=== PATIENT | male | born 1935 | race Caucasian/White ===

== ENCOUNTER 2019-12-01 09:01 | Inpatient (IN) ==
[2019-12-01] MEDS ORDERED: NEO SYNEPHRINE NAS ONE (09:38)
--- NOTE | 2019-12-01 09:47 | PROVIDER DOCUMENTATION ---
HPI-General Adult - General Chief Complaint: Near Syncope Stated Complaint: SYNCOPE Time Seen by Provider: 12/01/19 09:18 Source: patient, family, EMS, old records Allergies/Adverse Reactions: Patient Allergies Allergy/AdvReac Type Severity Reaction Status Date / Time No Known Allergies Allergy Verified 12/01/19 09:38 Home Medications: Home Medication List Medication Instructions Recorded Confirmed Last Taken Type Albuterol Sulfate Inhaler 1 dose INH PRN PRN 12/01/19 12/01/19 Unknown History [Ventolin Hfa] Aspirin EC 1 tab PO DAILY 12/01/19 12/01/19 11/30/19 History Citalopram [Celexa] 1.5 tab PO DAILY 12/01/19 12/01/19 11/30/19 History Simvastatin 1 tab PO DAILY 12/01/19 12/01/19 11/30/19 History - History of Present Illness -Gen Adult Nature of Presenting Problems: pt brought from home by EMS, hx of near syncope in bathroom (not on toilet at time). Pt says he had similar episode a few years ago, doesn't know/recall dx. 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 He had slight nosebleed yest and again this a.m. immed prior to event. he reports a sense of (vertigo) w/ dry heaving this a.m. coincident to event. he denies productive emesis, recent bloody/black stool. he denies assoc CP/SOB/lateralizing neuro symptoms. his reports he has hx of a "blood disorder" chrx by (? petechiae). he has no prior hx of cerebellar disease, CVA, or recurrent epistaxis. Location of Pain/Injury: reports: none Review of Systems - Adult - REVIEW OF SYSTEMS - ADULT Constitutional: reports: no symptoms reported Eyes: reports: other (vertigo) Ears, Nose, Mouth & Throat: reports: epistaxis Cardiovascular: reports: no symptoms reported Respiratory: reports: no symptoms reported Gastrointestinal: reports: no symptoms reported Genitourinary: reports: no symptoms reported Musculoskeletal: reports: no symptoms reported Integumentary: reports: no symptoms reported Neurological: reports: see HPI, dizziness/vertigo, syncope Psychiatric: reports: no symptoms reported Endocrine: reports: no symptoms reported Hematologic/Lymphatic: reports: no symptoms reported Allergic/Immunologic: reports: no symptoms reported All Other Systems: Reviewed and Negative Past History - Adult - PAST MEDICAL HISTORY-ADULT Review of Records: reports: Old Records Reviewed Major Childhood Illnesses: reports: denies history Cardiovascular: reports: cardiac disease, CAD, hyperlipidemia Respiratory: reports: bronchitis, COPD Gastrointestinal: reports: denies history Genitourinary: reports: cancer (prostate, no tx) Musculoskeletal: reports: denies history Neurological: reports: denies history Psychiatric: reports: denies history Endocrine/Immune: reports: denies history Physical Exam-General - PHYSICAL EXAM-ADULT Initial Vital Signs Reviewed: Yes - CONSTITUTIONAL General Appearance: alert (very [place], wearing hearing aids), mild distress, lethargic - EYES Eyes: PERRL/EOMI. negative: EOM palsy, sclera injected, scleral icterus, subconjunctival hemorrhage - HEAD, EARS, NOSE, MOUTH & THROAT HENMT: normocephalic/atraumatic, other (dried BRB in R nasal antrum) - NECK Neck: supple - RESPIRATORY Respiratory: chest non-tender, rhonchi (only w/ forced expiration) - CARDIOVASCULAR Cardiovascular: normal peripheral pulses, regular rate, rhythm, bradycardia - GASTROINTESTINAL (ABDOMEN) Abdominal Exam: normal bowel sounds, non tender, soft - LYMPHATIC Lymphatic: no adenopathy - MUSCULOSKELETAL Back Exam: normal inspection, no CVA tenderness Extremity: normal range of motion. negative: abnormal NV exam, calf tenderness, pulse deficit, pedal edema Peripheral Pulses: radial (R): 2+, radial (L): 2+ - SKIN Integumentary: normal turgor, diaphoresis, pallor. 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 negative: abnormal cerebellar tests, focal weakness - PSYCHIATRIC Psych/Mental Status: normal mood/affect, normal thought content Progress - PLAN OF CARE/RESULTS Progress/Plan/Lab Results: Vital Signs - 8 hr 12/01/19 09:05 Temperature 97.7 F Pulse Rate 49 L Respiratory Rate 12 Blood Pressure 126/60 O2 Sat by Pulse Oximetry 94 L Orders Category Date Time Status Cardiac Monitoring DIRECTED Care 12/01/19 09:39 Ordered NEWS Score 2-4:Order NEWS Lactate Series NOW Care 12/01/19 09:18 Active Oxygen Therapy- ED Nursing DIRECTED Care 12/01/19 09:39 Ordered Saline Loc NOW Care 12/01/19 09:39 Ordered CHEST-1 VIEW [RAD] Stat Exams 12/01/19 09:[address] HEAD W/O CONTRAST [CT] Stat Exams 12/01/19 09:40 Ordered CBC WITH ELECTRONIC DIFF [HEME] Stat Lab 12/01/19 09:39 Uncollected CK PROFILE [SP CHEM] Stat Lab 12/01/19 09:39 Uncollected COMPREHENSIVE METABOLIC PANEL [CHEM] Stat Lab 12/01/19 09:39 Uncollected LACTATE, PLASMA [CHEM] Q3H Lab 12/01/19 09:30 Uncollected LACTATE, PLASMA [CHEM] Q3H Lab 12/01/19 12:30 Uncollected LACTATE, PLASMA [CHEM] Q3H Lab 12/01/19 15:30 Uncollected PRO B-NATRIURETIC PEPTIDE Stat Lab 12/01/19 09:39 Uncollected PROTIME WITH INR [COAG] Stat Lab 12/01/19 09:39 Uncollected PTT [COAG] Stat Lab 12/01/19 09:39 Uncollected TROPONIN T HIGH SENSITIVITY Stat Lab 12/01/19 09:39 Uncollected Phenylephrine 1% Nose Drops [Hong-Synephrine 1% Nose Med 12/01/19 09:38 Once Drops] See Dose Instructions MARY NOW ONE CP/SOB/Palp >45 yrs of Age Stat Oth 12/01/19 09:39 Ordered Result Diagrams: 12/01/19 10:16 12/01/19 10:16 - REASSESSMENT Reassessment #1 Time Reassessed: 11:01 Status: unchanged (prelim labs and imaging NAD) Reassessment #2 Time Reassessed: 12:10 Status: unchanged (pt cont'd to cc: dizziness, malaise: I feel admission for further evaluation is warranted, will consult Hosp.) - EKG 1 Time of EKG reading by physician:: 09:10 EKG Interpretation (*Must complete 3 of following elements*): Normal Rate: 51 Rhythm: sinus gutierrez [place]: normal QRS: RBB (incomplete) [place] Interval: normal ST Wave: normal - CONSULTS/PCP/HOSPITALIST Notification #1 *Consult/PCP/Hospitalist*: Christiana Alvarez Time Discussed: 12:40 Consult Disposition: Will see in ED Departure - Departure Date of Disposition Decision: 12/01/19 Time of Disposition Decision: 12:45 DIAGNOSIS: Syncope and collapse, Vertigo Disposition: ADMITTED INPATIENT 09 Certified Medical Emergency: Emergent Condition: Serious - Critical Care Note This patient required my direct & personal management of CC.: Yes Total Time (mins): 45 Critical Care Statement: This patient required my direct personal management to treat or rule out processes, the absence of which, could potentiallly result in sudden, clinically significant life or limb threatening deterioration. Attestation - Physician/ OMAR Attestation The physician spent face to face time with patient:: Yes Advanced Practice Provider documentation review:: Supervising physician onsite and consulted in the evaluation and care of this patient. The physician did have a face to face encounter with the patient.
--- NOTE | 2019-12-01 10:15 | Diag Imaging Result Doc PS360 ---
EXAM: CT HEAD W/O CONTRAST - 12/01/2019 HISTORY: vertigo, syncope TECHNIQUE: CT head without contrast COMPARISON: None. FINDINGS: There are generalized mild atrophic changes and mild chronic appearing microvascular ischemic changes. There is no indication of recent infarct, although acute infarcts may not be immediately visible. There is no evidence of intracranial hemorrhage, mass effect, midline shift, or hydrocephalus. 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 There is no evidence of skull fracture. Visualized portions of paranasal sinuses and mastoid air cells appear clear except for mild mucosal thickening at the right compartment sphenoid sinus. IMPRESSION: No visible acute intracranial abnormality. No hemorrhage or mass effect. There is mild right sphenoid sinus mucosal thickening noted. This exam was performed using automated exposure control, adjustment of mA or kV according to patient size, and/or use of iterative reconstruction technique. Electronically signed by Bacilio Martínez 12/01/2019 10:13 AM
--- NOTE | 2019-12-01 10:17 | Diag Imaging Result Doc PS360 ---
EXAM: CHEST-1 VIEW - 12/01/2019 HISTORY: near syncope TECHNIQUE: One view chest COMPARISON: 08/20/2019 FINDINGS: Heart size is normal. There are sternal wires from previous surgery again seen. There are mild COPD changes. The lungs appear clear of acute changes. There is no pleural effusion or pneumothorax identified. IMPRESSION: Mild COPD changes. No acute changes. Electronically signed by Bacilio Martínez 12/01/2019 10:14 AM
[2019-12-01 10:27] LABS: BASO# 0.04 X1000 (0.0-0.2); BASO% 0.6 % (0.0-0.8); EOS# 0.13 X1000 (0.0-0.7); HEMATOCRIT 44.6 % (42.0-52.0); LYMPH% 26.2 % (20.5-51.1); MCHC 33.6 g/dL (33-37); MCV 92.1 FL (81-99); MONO# 0.52 X1000 (0.11-0.59); MPV 12.3 FL (7.4-10.4); NEUT# 4.09 X1000 (1.4-6.5); NEUT% 63.2 % (42.2-75.2); PLT 130 X1000 (130-400); RBC 4.84 XMIL (4.7-6.1); RDW 13.4 % (11.5-14.5); WBC 6.48 X1000 (4.8-10.8)
[2019-12-01 10:38] LABS: INR 1.06; PROTIME 13.9 Seconds (11.0-16.0)
[2019-12-01 10:39] LABS: PTT 27.5 Seconds (22.3-41.8)
[2019-12-01 10:57] LABS: AGAP 13; ALB/GLOB RATIO 1.7; ALBUMIN 3.9 g/dL (3.5-5.0); ALKALINE PHOSPHATASE 51 U/L (32-122); BUN 17 mg/dL (8-22); CALCIUM 9.3 mg/dL (8.8-10.2); CHLORIDE 108 mmol/L (98-107); CK PROFILE 46 U/L (24-204); COSMO 290; CREATININE 1.1 mg/dL (0.7-1.2); ESTIMATED GFR > 60; GLUCOSE 134 mg/dL (70-104); GOT 17 U/L (10-34); GPT 16 U/L (10-44); POTASSIUM 4.9 mmol/L (3.5-5.1); SODIUM 144 mmol/L (136-145); TCO2 23 mmol/L (25-35); TOTAL BILIRUBIN 1.18 mg/dL (0.20-1.00); TOTAL PROTEIN 6.2 g/dL (6.3-8.3)
[2019-12-01] MEDS ORDERED: ZOFRAN IV PRN (13:09)
[2019-12-01] MEDS ORDERED: VENTOLIN HFA INH PRN (13:12)
--- NOTE | 2019-12-01 15:36 | HISTORY AND PHYSICAL ---
CHIEF COMPLAINT: Dizziness, syncope. HISTORY OF PRESENT ILLNESS: This is a very pleasant 84-year-old gentleman with a history of COPD, coronary artery bypass graft, status post 20 years and prostate cancer, watching and waiting. He presents to the emergency room via EMS after falling. The patient states that yesterday he had a nosebleed and that it resolved spontaneously after a few minutes. Today, he was sitting in a chair. He felt and his nose was running. He said that he noticed it was bleeding. It bled continuous for a short amount of time. He is unable to tell me a certain time. He states that he got up to walk to the bathroom. While walking into the bathroom he became very dizzy. He got hot, he sweated, he had nausea. He did not vomit. He does not recall having any chest pain, any weakness our any lateralizing neurological symptoms. He states, "I was just so dizzy and week that my legs would not hold my body up." He denied any seizure activities, any loss of consciousness, any incontinence of stool or urine. PAST MEDICAL HISTORY: 1. Chronic obstructive pulmonary disease. 2. CAD status post coronary artery bypass graft greater than 20 years ago. 3. Hyperlipidemia. 4. Prostate cancer, watching and waiting. 5. Some kind of blood disorder that he follows with Dr. Farr. SOCIAL HISTORY: He lives with his . He denies any alcohol, tobacco, or illicit drug use. ALLERGIES: No known drug allergies. HOME MEDICATIONS: Ventolin inhaler, enteric-coated aspirin, Celexa, and simvastatin. REVIEW OF SYSTEMS: Discussed with patient with pertinent positives stated in the HPI. He denied any chest pain or palpitations, any vomiting, diarrhea, constipation, black or bloody vomitus or stools, any hematuria dysuria, frequency or urgency. PHYSICAL EXAMINATION: GENERAL: This is an 84-year-old gentleman who was sitting up on the stretcher in the emergency room in no distress. VITAL SIGNS: Blood pressure is 133/69 with a heart rate of 57, respirations are 16, temperature is 97.7 degrees oral with O2 saturations 93% to 95% on 2 L nasal cannula. HEENT: Head is normocephalic, atraumatic. Mucous membranes are moist. NECK: Supple with trachea midline. No JVD. CARDIOVASCULAR: Regular rate and rhythm. S1 and S2 are appreciated. No murmur. He has no lower extremity edema. Calves are nontender. PULMONARY: Breath sounds are clear with no increased work of breathing noted. Chest rises and falls symmetric with respiration. Chest wall is nontender to palpation. GASTROINTESTINAL: Abdomen is soft, nontender, nondistended with bowel sounds in all 4 quadrants. GENITOURINARY: No CVA or suprapubic tenderness. NEUROLOGIC: He is alert and oriented x3 with cranial nerves 2-12 grossly intact. SKIN: Pale, warm and dry. LABS: WBC is 6.4, hemoglobin 15, hematocrit 44.6, and platelets of 130,000. Sodium 144, potassium 4.9, BUN 17, creatinine 1.1 with a glucose of 134. IMAGING: CT of the head reveals no visible acute intracranial abnormality. No hemorrhage or mass effect. There is right sphenoid sinus mucosal thickening. Chest x-ray reveals mild COPD changes, no acute changes. ASSESSMENT: This is an 84-year-old gentleman with: 1. Syncope. 2. Dizziness. 3. Recent nosebleed. 4. Coronary artery bypass graft and coronary artery disease. 5. Chronic obstructive pulmonary disease with no exacerbation. 6. Prostate cancer, watching and waiting. PLAN: 1. Hong-Synephrine nose spray, 1 to 2 sprays in the nostril p.r.n. bleeding. 2. Ventolin inhaler 1 puff q.4 hours as needed. 3. Trend troponins. 4. Check the take EKG in the morning. 5. Echocardiogram. 6. Bilateral carotid Doppler. 7. Identify home medications and continue as appropriate. 8. Telemetry. 9. EKG and further treatments pending hospital course. 10. Check CBC, CMP, and magnesium in the morning. Dictated by IVONNE Mead for Yazmin Blackwell MD cc: IVONNE Mead MD
--- NOTE | 2019-12-01 15:54 | EKG Report ---
Test Performed on : 12/01/2019 09:10:28 AM Test Reason : dizzy, syncope Blood Pressure : / mmHG Vent. Rate : 051 BPM Atrial Rate : 051 BPM P-R Int : 152 ms QRS Dur : 100 ms QT Int : 452 ms P-R-T Axes : 067 022 055 degrees QTc Int : 416 ms Sinus bradycardia. Incomplete right bundle branch block Borderline ECG No previous ECGs available Unconfirmed Result
[2019-12-01] MEDS ORDERED: TYLENOL PO PRN (16:13)
[2019-12-01 17:38] LABS: ALLEN TEST YES; BE -1.2 mmoll (-3.0-3.0); BLOOD TYPE ARTERIAL; HCO3-(ACT) 23.9 mmoll (20.0-26.0); METHB 1.2 % (0.0-1.5); O2(CT) 20.9 mL/dL (15.0-23.0); O2HB 95.2 % (95.0-99.0); PCO2(98.6) 35 mmHg (35-45); PO2(98.6) 80 mmHg (60-100); SAMPLE BLOOD; SAO2 97.9 % (95.0-100.0); THB 15.6 g/dL (11.5-17.4); pH(98.6) 7.42 (7.35-7.45)
[2019-12-01 17:39] LABS: MODALITY CANNULA
[2019-12-01] MEDS: DUONEB (A & A) INH SCH ×2 (19:41→23:30)
[2019-12-02] MEDS: DUONEB (A & A) INH SCH ×3 (03:57→11:08)
[2019-12-02 07:40] LABS: BASO# 0.03 X1000 (0.0-0.2); BASO% 0.3 % (0.0-0.8); EOS# 0.12 X1000 (0.0-0.7); EOS% 1.3 % (0.0-10.0); HEMATOCRIT 43.5 % (42.0-52.0); HEMOGLOBIN 14.8 g/dL (14.0-18.0); IMM GRAN# 0.02 X1000 (0.0-0.04); IMM GRAN% 0.2 % (0.0-0.5); LYMPH# 2.07 X1000 (1.2-3.4); LYMPH% 23.1 % (20.5-51.1); MCH 31.3 PG (27-31); MONO# 0.73 X1000 (0.11-0.59); MONO% 8.1 % (1.7-9.3); MPV 12.6 FL (7.4-10.4); PLT 118 X1000 (130-400); RBC 4.73 XMIL (4.7-6.1); RDW 13.4 % (11.5-14.5); WBC 8.97 X1000 (4.8-10.8)
--- NOTE | 2019-12-02 07:52 | EKG Report ---
Test Performed on : 12/02/2019 07:39:08 AM Test Reason : bradycardia Blood Pressure : / mmHG Vent. Rate : 061 BPM Atrial Rate : 061 BPM P-R Int : 162 ms QRS Dur : 102 ms QT Int : 422 ms P-R-T Axes : 069 022 050 degrees QTc Int : 424 ms Normal sinus rhythm. Incomplete right bundle branch block Borderline ECG When compared with ECG of 01-DEC-2019 09:10, (Unconfirmed) No significant change was found Confirmed by Kristel CASILLAS, Fletcher Givens ([id number]) on 12/02/2019 9:26:31 AM
[2019-12-02] MEDS ORDERED: ZOCOR PO SCH (09:00)
[2019-12-02] MEDS ORDERED: CELEXA PO SCH (09:00)
[2019-12-02] MEDS ORDERED: ASPIRIN EC PO SCH (09:00)
[2019-12-02 12:34] LABS: AGAP 13; ALB/GLOB RATIO 2.4; ALKALINE PHOSPHATASE 51 U/L (32-122); BUN 15 mg/dL (8-22); CALCIUM 8.9 mg/dL (8.8-10.2); CHLORIDE 103 mmol/L (98-107); COSMO 273; ESTIMATED GFR > 60; GLUCOSE 107 mg/dL (70-104); GOT 15 U/L (10-34); GPT 14 U/L (10-44); MAGNESIUM 1.9 mg/dL (1.5-2.7); POTASSIUM 4.2 mmol/L (3.5-5.1); SODIUM 136 mmol/L (136-145); TCO2 20 mmol/L (25-35); TOTAL BILIRUBIN 1.24 mg/dL (0.20-1.00); TOTAL PROTEIN 5.7 g/dL (6.3-8.3)
--- NOTE | 2019-12-02 15:14 | CARDIOLOGY CONSULTATION ---
DATE: 12/02/2019 CHIEF COMPLAINT ON PRESENTATION: Dizziness. Nosebleed. HISTORY OF PRESENT ILLNESS: Mr. De Los Santos is an 84-year-old white male with a history of coronary bypass roughly 20 years ago, COPD, prostate cancer. He presents after an episode of nose bleeding that occurred yesterday while he was getting ready for a bath. He was not performing any physical exertion. He reports no trauma. During the course of the nosebleed he felt very dizzy. He did not vomit, he did not pass out. He made it over to the bed and lay down in the bed and it resolved with a few minutes of rest. He is adamant that he did not pass out. He had no fevers. No recent cough. No complaints of chest pain. PAST MEDICAL HISTORY: 1. COPD. 2. Coronary disease with history of bypass grafting. I do not have his records as of yet. 3. Hyperlipidemia. 4. Prostate cancer currently under monitoring. 5. Hyperlipidemia. SOCIAL HISTORY: He is . No current tobacco or alcohol. FAMILY HISTORY: Hypertension. REVIEW OF SYSTEMS: A 10 system review of systems is negative except for those mentioned HPI. PHYSICAL EXAMINATION: Afebrile. Heart rate 63. Blood pressure 139/70. He was not orthostatic.General: No acute distress. HEENT: Oropharynx is moist. Poor dentition. [place] conjunctivae. White sclerae. Neck: Shows no obvious thyromegaly or thyroid tenderness. Cardiovascular: He sounds to be in a regular rate and rhythm. He has no obvious murmurs. There is no S3 present. He has no lower extremity edema. Chest: Clear bilaterally. He has no increased work of breathing. Abdomen: Soft, nontender, nondistended. He has no obvious organomegaly. Skin: Warm and dry throughout without any rashes. Neurological: He is moving all extremities well. He has no lateralizing deficits. PERTINENT DATA: His EKG at 9:10 shows sinus rhythm, 51 beats per minute. Normal intervals, normal axis. No signs of infarct. His EKG tracing on the at 7:39 sinus rhythm, normal intervals, normal axis. No infarct. No ischemic changes although his tracings were reviewed by me. His chest x-ray shows mild COPD changes. His lab data shows a white count 8.9, hematocrit 43, platelet count is 118,000. His sodium is 136, potassium 4.2, BUN 15, creatinine is 1. His cardiac enzymes are negative. His proBNP was 76. ASSESSMENT: Mr. De Los Santos is an 84-year-old gentleman who presented with nosebleed and dizziness with no overt syncope. PLAN: I will review his echocardiogram. If this is unremarkable, then he can likely be discharged home with an outpatient KOURTNEY monitor. His EKGs have been unremarkable. His telemetry tracings have demonstrated sinus rhythm with no significant arrhythmias. His lab data has been unremarkable with the exception of a non anion gap acidosis. His troponins have been unremarkable. We will review the echocardiogram. Further recommendations to follow. cc: Major Jackson MD
[2019-12-02 16:10] VITALS: BP 139/74
--- NOTE | 2019-12-02 20:23 | DISCHARGE SUMMARY ---
ADMISSION DATE: 12/01/2019 DISCHARGE DATE: 12/02/2019 FINAL DISCHARGE DIAGNOSES: 1. Dizziness. 2. Epistaxis. 3. Hypertension. 4. History of prostate cancer. 5. Coronary artery disease. 6. Chronic obstructive pulmonary disease. CONSULTATIONS: Cardiology consultation with Dr. Jackson. IMAGING: Head CT performed on 12/01/2019 which reveals mild right sphenoid sinus thickening. HOSPITAL COURSE: Mr. De Los Santos is an 84-year-old male with a history of COPD and coronary artery disease who presented to the ER with a chief complaint of dizziness as well as a nosebleed prior to the dizziness. The patient was brought to the ER. Upon arrival the patient was noted to have normal blood pressure. His laboratory studies were noted to be within normal limits as well. The patient was admitted to the hospitalist service for observation. The patient was placed on telemetry. No arrhythmia was noted over the 24 hour period. The patient was seen by the pediatric social worker and an echocardiogram was done. It was recommended by the pediatric social worker that the patient be given a event monitor which he will arrange. The patient had no further episodes of dizziness or epistaxis while hospitalized. The patient was cleared for discharge home on 12/02/2019. DISCHARGE MEDICATIONS: 1. Aspirin 81 mg p.o. daily. 2. Celexa 30 mg oral daily. 3. Simvastatin 20 mg p.o. at bedtime. DISCHARGE DIET: Low-sodium, low-cholesterol diet. ACTIVITY: As tolerated. FOLLOWUP INSTRUCTIONS: The patient will need to follow up with Dr. Major Jackson as scheduled by his clinic. He will then arrange for the patient to be given event monitor. cc: Yazmin Blackwell MD
--- NOTE | 2019-12-03 05:23 | ECHO REPORT ---
ORDER DATE: 12/02/2019 MEASUREMENTS: 1. Left ventricular internal diameter in diastole 4.4. 2. Aortic root 3.3. 3. Left atrium 4.9. SUMMARY: 1. Technically difficult study due to limited acoustic window quality. 2. The aortic valve is trileaflet and opens normally on 2-dimensional images. The peak gradient across aortic valve is approximately 10 mmHg. Mitral and tricuspid valves are without evidence of structural abnormality while pulmonic valve is not well demonstrated. There is trace tricuspid regurgitation. The aortic root is normal in size. 3. Normal left ventricular dimensions demonstrated. The left ventricular ejection fraction is estimated to be approximately 70%. No regional wall motion abnormality is evident. Doppler mitral inflow demonstrates pseudo normalized pattern suggesting grade 2 left ventricular diastolic dysfunction. Left atrium is moderately enlarged. The right atrium and right ventricle are normal size with grossly preserved right ventricular systolic function. 4. No pericardial effusion. 5. Inferior vena cava not well demonstrated. CONCLUSIONS: 1. Technically difficult study. 2. No significant valvular abnormality evident. 3. Estimated left ventricular ejection fraction approximately 70% without regional wall motion abnormality evident. 4. Grade 2 left ventricular diastolic dysfunction suggested. 5. Moderate left atrial enlargement. cc: MD Savita Greer CRNP
--- NOTE | 2019-12-03 07:04 | Carotid Study ---
DATE: 12/02/2019 REQUESTING PROVIDER: IVONNE Mead.. SHADOWGRAPH SCALE OPERATOR: Khoi. INDICATIONS: Syncope. EQUIPMENT: [employer] Vivid E9 ultrasound system with a 9 L-D transducer. FINDINGS: Complete diagram of ultrasound can be seen and scanned in patient's medical record. Peak systolic velocity noted on the right side in the mid internal carotid artery is noted to be 97. The peak systolic velocity noted in the left side is noted in the proximal internal carotid artery, noted to be 106. The calculated internal common ratio on the right is 0.72 and left 0.87. Calculated stenosis on the right 0 to 39 percent, left 0 to 39 percent. There appears to be some atherosclerosis noted to bilateral common carotid arteries extending into the internal carotid arteries, but this does not produce a hemodynamically significant flow-limiting stenosis by strict velocity criteria. Both vertebral arteries were antegrade flow. INTERPRETATION: By strict velocity criteria, no hemodynamically significant flow-limiting stenosis noted. cc: MD Savita Gibson CRNP
== END 2019-12-02 16:11 | disposition home or self-care (01) | DRG 149 ==
LOC: ED 09:01 → 3N 13:32
PROVIDERS: ATTEND Internal Medicine